=== PATIENT | male | born 1960 | race Caucasian/White ===

== ENCOUNTER 2019-05-14 17:25 | Emergency (ER) | payer SELFPAY ==
[~2019-05-14] VITALS: Ht 162.6 cm; Wt 83.0 kg
[2019-05-14 17:36] VITALS: Ht 162.6 cm; Wt 83.0 kg
[2019-05-14 21:04] LABS: UA SPECIFIC GRAVITY <=1.005 (1.005-1.035); microscopic required? YES; urine erythrocyte 3+ (NEGATIVE)
[2019-05-14 21:48] LABS: BASOPHIL % 0.7 % (0-2); PLATELET COUNT 262 x10^3mcL (130-400); RED CELL DISTRIBUTION WIDTH 13.4 % (11.5-14.5)
[2019-05-14 21:58] LABS: CALCIUM 8.5 mg/dL (8.5-10.1); CARBON DIOXIDE 31.5 mmol/L (21-32); CHLORIDE SERUM 103 mmol/L (98-107); CREATININE SERUM 0.8 mg/dL (0.7-1.3); GFR1 > 60 mL/min; GLUCOSE SERUM 95 mg/dL (74-106); POTASSIUM SERUM 3.9 mmol/L (3.5-5.1); SODIUM SERUM 140 mmol/L (136-145)
[2019-05-14 22:03] LABS: ALBUMIN 3.9 g/dL (3.4-5.0); ALKALINE PHOSPHATASE 81 U/L (46-116); ALT/SGPT 43 U/L (16-63); AST/SGOT 18 U/L (15-37); BILIRUBIN TOTAL 0.5 mg/dL (0.20-1.00); TOTAL PROTEIN, SERUM 7.6 g/dL (6.4-8.2)
[2019-05-14 23:32] VITALS: BP 131/84
== END 2019-05-14 23:56 | disposition home or self-care (01) ==
LOC: ED 17:25
PROVIDERS: Emergency Medicine
DX: R31.9 Hematuria, unspecified (principal); N05.9 Unspecified nephritic syndrome with unspecified morphologic changes
CPT/HCPCS: 36415